=== PATIENT | female | born 1980 | race Caucasian/White ===

== ENCOUNTER 2017-02-01 19:37 | Emergency (ER) | payer MEDICAID ==
[~2017-02-01] VITALS: Wt 65.5 kg
[~2017-02-01 19:37] MED LIST: CEPH-443 PO; LORA-441 PO; PARO10TA76 PO
[2017-02-01] MEDS ORDERED: POLY10DR19 RIGHT EYE (21:17)
--- NOTE | 2017-02-02 03:53 | ERD ---
ER Documentation Chief Complaint Date/Time DATE: 02/02/17 TIME: 03:51 Chief Complaint Right eye itch and pain since last night HPI This patient is a 28-year-old female with no significant medical history presenting to the emergency department for right eye discharge ongoing for 1 day. She also reports swelling. She reports itching. The patient is taken no medication for relief of symptoms. The patient denies radiation of symptoms. The patient does not wear glasses or contacts. The patient denies visual acuity changes. The patient denies fevers, chills, or other symptoms at this time. ROS All systems reviewed and are negative except as per history of present illness. Medications Home Meds Active Scripts Polymyxin B Sulfate-TMP* (Polymyxin B-TMP Eye Drops*) 10 Ml Drops, 1 DROP RIGHT EYE QID for 7 Days, #1 BOTTLE Prov:BALBIR ANDERSON PA-C 02/01/17 Cephalexin* (Keflex*) 500 Mg Capsule, 500 MG PO QID for 5 Days, CAP Prov:HERMINIA NAJERA MD 03/28/16 Paroxetine Hcl* (Paroxetine*) 10 Mg Tablet, 10 MG PO DAILY, #30 TAB Prov:HERMINIA NAJERA MD 03/28/16 Lorazepam* (Ativan*) 0.5 Mg Tablet, 0.5 MG PO Q8, #14 TAB Prov:HERMINIA NAJERA MD 03/28/16 Allergies Allergies: Coded Allergies: No Known Allergy (Unverified , 02/01/17) PMhx/Soc Hx Miscellaneous Medical Probl: No (ANXIETY) Hx Alcohol Use: No Hx Substance Use: No Hx Tobacco Use: No Smoking Status: Never smoker FmHx Noncontributory for chief complaint Physical Exam Vitals Vital Signs Date Time Temp Pulse Resp B/P Pulse Ox O2 Delivery O2 Flow Rate FiO2 02/01/17 20:15 97.9 63 20 99/55 100 Physical Exam Const: The patient is resting comfortably in no acute distress. Head: Atraumatic Eyes: Patient has corneal injection of the right thigh with some dried purulent material on the eyelashes. The left eye is normal in appearance. EOMs are intact bilaterally. ENT: Normal External Ears, Nose and Mouth. Neck: Full range of motion..~ No meningismus. Resp: Clear to auscultation bilaterally Cardio: Regular rate and rhythm, no murmurs Abd: Soft, non tender, non distended. Normal bowel sounds Skin: No petechiae or rashes Back: No midline or flank tenderness Ext: No cyanosis, or edema Neur: Awake and alert Psych: Normal Mood and Affect Procedures/MDM 28-year-old female presents secondary complaints of right eye discharge and redness. On physical examination the patient's vitals are within normal limits. The patient does have some discharge dried to her right eyelashes and there is conjunctival injection. Clinical examination findings are concerning for conjunctivitis of the right eye most likely bacterial in etiology. The patient is stable for outpatient management with a prescription for Polytrim. I have low suspicion for periorbital cellulitis, preseptal cellulitis, septicemia, or other emergent conditions. Strict ER return precautions were discussed and the patient is to have close follow-up with the primary care physician. Departure Diagnosis: Primary Impression: Conjunctivitis Condition: Fair Patient Instructions: Conjunctivitis Caused by Infection [facility] Usted se junior hecho un examen mdico de control que le indica que no est en jose condicin que requiera tratamiento urgente en el Departamento de Emergencia. Un estudio ms profundo y el tratamiento de melendez condicin pueden esperar sin ningn riesgo hasta que usted sea atendida/o en el consultorio de melendez mdico o jose cl meghan. Es responsabilidad suya arreglar jose lucy para el seguimiento del nelson. MANEJO DE CONDICIONES NO URGENTES EN EL FUTURO 1) Si usted tiene un mdico de atencin primaria: Usted debera llamar a melendez mdico de atencin primaria antes de venir al departamento de emergencia. Despus de las horas de consultorio, melendez doctor o melendez asociado/a est disponible por telfono. El mdico o enfermero de liban en el servicio telefnico puede asesorarle por babak medio para atender el problema, o nelson contrario se puede programar jose lucy. 2) Si usted no tiene un mdico de atencin primaria: Llame al mdico o clnica de referencia que aparece abajo kain las horas de consultorio para hacer jose lucy para que le vean. CLINICAS: [facility] [id number] [facility] [phone] [facility] [phone] [place] [phone] [place] [address] [phone] [facility]. [phone] [address] Additional Instructions: No mas mejor en 2-3 christine, regresar. Mas peor en 24 horas, regresear rapidamente. Ir a doctor primario in 5-7 christine. Usar instrucciones cuando catherine medicamento. BALBIR ANDERSON PA-C February 02, 2017 03:53
== END 2017-02-01 21:32 | disposition home or self-care (01) ==
LOC: FTE 19:37
DX: H10.9 Unspecified conjunctivitis (principal)
CPT/HCPCS: 99283